=== PATIENT | female | born 1950 | race Caucasian/White ===

== ENCOUNTER → 2019-07-15 | Outpatient (CLI) | payer OTHER | LOC: HYPER 07-11 15:06 | DX: I89.0 Lymphedema, not elsewhere classified (principal); L30.9 Dermatitis, unspecified; E66.01 Morbid (severe) obesity due to excess calories; E78.5 Hyperlipidemia, unspecified; R60.0 Localized edema; R53.82 Chronic fatigue, unspecified; Z68.34 Body mass index [BMI] 34.0-34.9, adult; Z90.710 Acquired absence of both cervix and uterus ==

== ENCOUNTER → 2019-07-23 | Outpatient (CLI) | payer OTHER | LOC: SJCVCIMAG 08:34 | DX: M79.89 Other specified soft tissue disorders (principal); M79.661 Pain in right lower leg; M79.662 Pain in left lower leg ==

== ENCOUNTER → 2019-07-30 | Outpatient (CLI) | payer OTHER | LOC: HYPER 14:01 | DX: L30.9 Dermatitis, unspecified (principal); I89.0 Lymphedema, not elsewhere classified; R53.82 Chronic fatigue, unspecified; E78.5 Hyperlipidemia, unspecified; E66.01 Morbid (severe) obesity due to excess calories; Z68.34 Body mass index [BMI] 34.0-34.9, adult ==

== ENCOUNTER → 2019-08-20 | Outpatient (CLI) | payer OTHER | LOC: HYPER 14:46 | DX: I89.0 Lymphedema, not elsewhere classified (principal); L30.9 Dermatitis, unspecified; R53.82 Chronic fatigue, unspecified; E78.5 Hyperlipidemia, unspecified; E66.01 Morbid (severe) obesity due to excess calories; Z68.34 Body mass index [BMI] 34.0-34.9, adult ==

== ENCOUNTER → 2019-09-10 | Outpatient (CLI) | payer OTHER | LOC: HYPER 08:22 | DX: I89.0 Lymphedema, not elsewhere classified (principal); E78.5 Hyperlipidemia, unspecified; E66.01 Morbid (severe) obesity due to excess calories; L30.9 Dermatitis, unspecified; R60.0 Localized edema; R53.82 Chronic fatigue, unspecified; Z68.34 Body mass index [BMI] 34.0-34.9, adult ==

== ENCOUNTER → 2020-12-23 | Outpatient (CLI) | payer OTHER | LOC: HYPER 08:39 | PROVIDERS: ATTEND Emergency Medicine | DX: I89.0 Lymphedema, not elsewhere classified (principal); L30.9 Dermatitis, unspecified; R60.0 Localized edema; E78.5 Hyperlipidemia, unspecified; E66.01 Morbid (severe) obesity due to excess calories; R53.82 Chronic fatigue, unspecified; Z68.34 Body mass index [BMI] 34.0-34.9, adult ==

== ENCOUNTER → 2021-01-20 | Outpatient (CLI) | payer OTHER | LOC: HYPER 08:22 | PROVIDERS: ATTEND Emergency Medicine | DX: I89.0 Lymphedema, not elsewhere classified (principal); L84 Corns and callosities; L30.9 Dermatitis, unspecified; R60.0 Localized edema; E78.5 Hyperlipidemia, unspecified; E66.01 Morbid (severe) obesity due to excess calories; R53.82 Chronic fatigue, unspecified; Z68.34 Body mass index [BMI] 34.0-34.9, adult ==

== ENCOUNTER → 2021-05-03 | Outpatient (CLI) | payer OTHER | LOC: HYPER 08:14 | PROVIDERS: ATTEND Emergency Medicine | DX: I89.0 Lymphedema, not elsewhere classified (principal); S81.802D Unspecified open wound, left lower leg, subsequent encounter; S81.801D Unspecified open wound, right lower leg, subsequent encounter; L03.115 Cellulitis of right lower limb; L03.116 Cellulitis of left lower limb; L30.9 Dermatitis, unspecified; R60.0 Localized edema; R53.82 Chronic fatigue, unspecified; E78.5 Hyperlipidemia, unspecified; E66.01 Morbid (severe) obesity due to excess calories; Z68.34 Body mass index [BMI] 34.0-34.9, adult; Z79.899 Other long term (current) drug therapy; X58.XXXD Exposure to other specified factors, subsequent encounter ==

== ENCOUNTER 2021-05-17 16:32 | Emergency (ER) | payer OTHER ==
[~2021-05-17] VITALS: Ht 157.5 cm; Wt 86.2 kg
[2021-05-17 18:25] LABS: ABSOLUTE NEUTROPHILS 4.4 thou/uL (1.4-8.2); BASOPHILS 0.9 % (0.0-2.0); EOSINOPHILS 2.8 % (0.0-3.0); HEMATOCRIT 39.2 % (37.0-47.0); HEMOGLOBIN 12.6 gm/dL (12.0-15.0); LYMPHOCYTES 25.3 % (24.0-44.0); MCH 28.2 pg (26.0-34.0); MCHC 32.1 g/dL (28.0-37.0); MCV 87.7 fL (80.0-100.0); MONOCYTES 10.6 % (1.0-8.0); PLATELET COUNT 212 thou/uL (150-400); POLYS 60.4 % (36.0-66.0); RBC 4.47 mil/uL (4.20-5.00); RDW 14.7 % (10.5-14.5); WBC 7.2 thou/uL (4.0-11.0)
[2021-05-17 18:33] LABS: CALCIUM 9.8 mg/dL (8.5-10.1); CREATININE 1.2 mg/dL (0.6-1.0); POTASSIUM 3.9 mmol/L (3.5-5.1)
[2021-05-17] MEDS ORDERED: FUROSEMIDE 40 M40 M1 PO (18:40)
[2021-05-17] MEDS ORDERED: POTASSIUM CHLO10 ME1 PO (18:41)
[2021-05-17] MEDS ORDERED: NAPROSYN500 MG PO (18:54)
[2021-05-17] MEDS ORDERED: AUGMENTIN 875-1 EACH PO (18:54)
[2021-05-17] MEDS ORDERED: NORCO5 PO (18:54)
[2021-05-17 19:20] VITALS: BP 149/77
== END 2021-05-17 19:22 | disposition home or self-care (01) ==
LOC: ER 16:32
PROVIDERS: Emergency Medicine
DX: I89.0 Lymphedema, not elsewhere classified (principal); Z79.899 Other long term (current) drug therapy

== ENCOUNTER → 2021-05-20 | Outpatient (CLI) | payer OTHER ==
[~2021-05-20] MED LIST: AUGMENTIN 875-1 EACH PO; FUROSEMIDE 40 M40 M1 PO; NAPROSYN500 MG PO; NORCO5 PO; POTASSIUM CHLO10 ME1 PO
== END ==
LOC: HYPER 12:51
PROVIDERS: ATTEND Emergency Medicine
DX: L97.822 Non-pressure chronic ulcer of other part of left lower leg with fat layer exposed (principal); I89.0 Lymphedema, not elsewhere classified; L30.9 Dermatitis, unspecified; R60.0 Localized edema; R53.82 Chronic fatigue, unspecified; E78.5 Hyperlipidemia, unspecified; E66.01 Morbid (severe) obesity due to excess calories; Z68.34 Body mass index [BMI] 34.0-34.9, adult; Z79.899 Other long term (current) drug therapy

== ENCOUNTER 2021-05-28 16:39 | Inpatient (IN) | payer OTHER ==
[~2021-05-28] VITALS: Ht 162.6 cm; Wt 101.6 kg
[2021-05-28 16:44] VITALS: BP 159/77
[2021-05-28 18:30] LABS: BASOPHILS 0.4 % (0.0-2.0); EOSINOPHILS 3.3 % (0.0-3.0); HEMATOCRIT 36.8 % (37.0-47.0); LYMPHOCYTES 17.9 % (24.0-44.0); MCH 28.2 pg (26.0-34.0); MCHC 32.7 g/dL (28.0-37.0); MCV 86.4 fL (80.0-100.0); MONOCYTES 8.1 % (1.0-8.0); PLATELET COUNT 209 thou/uL (150-400); POLYS 70.3 % (36.0-66.0); RBC 4.26 mil/uL (4.20-5.00); RDW 14.6 % (10.5-14.5)
[2021-05-28 18:39] LABS: CALCIUM 9.4 mg/dL (8.5-10.1); CREATININE 0.9 mg/dL (0.6-1.0); POTASSIUM 3.9 mmol/L (3.5-5.1)
[2021-05-28 18:45] LABS: ALBUMIN 2.8 g/dL (3.4-5.0); TOTAL BILIRUBIN 0.5 mg/dL (0.2-1.0)
[2021-05-28 20:25] VITALS: BP 173/84
[2021-05-28 22:09] VITALS: BP 157/97
--- NOTE | 2021-05-29 02:39 | NUR ---
PT ADMITTED TO UNIT APPROX 2118, PT ORIENTED TO ROOM, ADDITIONAL CONSENTS OBTAINED, BELONGINGS LOGGED, ADMISSION PACKET PROVIDED, WOUND PICTURES OBTAINED. UPON ADMISSION ASSESSMENT, PT AOX4. PT REPORTS 10/10 PAIN IN LLE. PT RECEIVING PRN IV MORPHINE Q4HR WITH PRN PO NORCO Q4HR AND PRN PO APAP Q4HR AVAILABLE. PT DENIES SOB WHILE ON ROOM AIR. PT TOLERATING PO INTAKE OF FLUIDS AND REGULAR DIET WITHOUT ISSUE. PT WITHOUT NAUSEA OR EMESIS. PT RESTING IN BED THROUGHOUT SHIFT, FREQUENT REPOSITIONING ENCOURAGED, PT NOTED TO SHIFT SLIGHTLY ON HER OWN, OTHERWISE REFUSING REPOSITIONING ASSISTANCE. SENSATION INTACT, CAPILLARY REFILL LESS THAN 3SEC, PEDAL PULSES WEAK, RADIAL PULSES PALPABLE. NONPITTING EDEMA NOTED TO BLE. OPEN WEEPING EDEMA NOTED TO LLE. OPEN AREAS DRESSED WITH XEROFORM, ABD, AND ROLLED GAUZE. PT TOLERATED WOUND CARE WITHOUT ISSUE. PT ENCOURAGED TO NOTIFY STAFF FOR ALL NEEDS, CALL LIGHT WITHIN REACH, BED ALARM ON, BED LOCKED IN LOWEST POSITION, FREQUENT MONITORING WILL CONTINUE.
[2021-05-29 05:56] LABS: HEMATOCRIT 32.1 % (37.0-47.0); HEMOGLOBIN 10.4 gm/dL (12.0-15.0); MCHC 32.5 g/dL (28.0-37.0); MCV 86.3 fL (80.0-100.0); RBC 3.72 mil/uL (4.20-5.00); RDW 14.8 % (10.5-14.5); WBC 7.4 thou/uL (4.0-11.0)
[2021-05-29 06:02] VITALS: BP 148/96
[2021-05-29 06:07] LABS: CALCIUM 8.5 mg/dL (8.5-10.1); CREATININE 0.8 mg/dL (0.6-1.0); POTASSIUM 3.7 mmol/L (3.5-5.1)
[2021-05-29 07:50] VITALS: BP 157/80
--- NOTE | 2021-05-29 09:30 | NUR ---
GOES BY "SWEET PEA". LEFT LOWER LEG OPEN, WEEPING, CELLULITIS. WOUND CARE BID. RIGHT WRIST PIV WITH NS INFUSING @ 100 MLS/HR. ONE ASSIST WITH WALKER. TOLERATING IV ABT WELL. NO ADVERSE EFFECTS NOTED.
[2021-05-29 16:11] VITALS: BP 156/81
[2021-05-29 21:05] VITALS: BP 144/61
--- NOTE | 2021-05-30 00:25 | NUR ---
ASSUMED PT CARE AT 0000.PT WAS OBSERVED LYING DOWN ON HER BED WITH HER EYES CLOSED.L HIP DRSG C/D/I.PT ON 2L/NC.PT BREATHING NORMAL AND NON LABORED.CALL LIGHT WITHIN REACH.
--- NOTE | 2021-05-30 00:43 | NUR ---
ASSUMED PT CARE AT 0000.PT WAS OBSERVED LYING ON HER BED WITH HER EYES COSED.DRSG TO HER L LEG C/D/I.NO COMPLIANT NOTED SO FAR.CALL LIGHT WITHIN REACH.
--- NOTE | 2021-05-30 04:57 | HC ---
[facility] [place] [address] CONSULTATION Name: CINDY CLAROS Room #: 439-P ADM IN M.R.#: [id number] Admission: 05/28/21 Attend Phys: Myesha Heck Discharge: Date of : 52 Report #: [id number] THIS REPORT FOR: cc: Alva Gore DNP, Mary E. DNP Barry, Joseph W. MD ~ DATE OF SERVICE: 05/29/2021 INFECTIOUS DISEASE CONSULTATION ATTENDING PHYSICIAN: Dr. Heck. REASON FOR EVALUATION: Left lower extremity skin and soft tissue infection with cellulitis, likely multifactorial etiology to the inflammatory eruption. HISTORY OF PRESENT ILLNESS: Chart reviewed. The patient examined. A 71-year-old with a longstanding history of venous stasis insufficiency, degree of lymphedema as well, who has chronic wounds. She ____ the duration, although has been followed up in the wound care center. She notes they were increasingly painful, associated with increasing redness and swelling as well. She was referred for admission, had been treated as an outpatient with doxycycline over the last couple of weeks and then more recently Augmentin. Per the report, may have had a positive blood culture with MRSA. She has had followup cultures collected in the ER, which are sterile thus far. Coronavirus testing was negative. Lactic acid was 1.1. On questioning, she is not clear that she has had fevers, has had some degree of diminished appetite and p.o. intake. Denies pulmonary or GI related complaints. ALLERGIES: None known. CURRENT MEDICATIONS: Include enoxaparin, furosemide, vancomycin, Zosyn, hydrocodone as needed. PAST MEDICAL HISTORY: As described above, chronic lower extremity venous stasis insufficiency, complicated by ulcers, has lymphedema, previous bilateral knee arthroplasty. SOCIAL HISTORY: Nonsmoker, no ethanol, no illicit drug use. FAMILY HISTORY: Noncontributory. REVIEW OF SYSTEMS: Otherwise, unremarkable. PHYSICAL EXAMINATION: GENERAL: She is alert, cooperative, appropriate, generally lucid, moderate distress. [facility] [address] [place] [address] CONSULTATION Name: CINDY CLAROS Room #: 439-[facility] IN M.R.#: [id number] Admission: 05/28/21 Attend Phys: Myesha Heck Discharge: Date of : 52 Report #: [id number] VITAL SIGNS: Temperature 98.2, pulse 96, respirations 18, blood pressure 148/96. SKIN: Warm, dry, no rashes. HEENT: Otherwise, unremarkable. Normocephalic. Extraocular muscles intact. NECK: Supple. LUNGS: Diminished breath sounds, scattered crackles at the bases. HEART: Regular, may have a soft systolic murmur. ABDOMEN: Obese, somewhat firm, nontender. EXTREMITIES: No cyanosis. The wrapping over the bilateral lower extremities, there is a considerable swelling noted. It is palpably tender. GENITOURINARY AND RECTAL: Deferred. LABORATORY DATA: Blood cultures collected from the are sterile thus far. Electrolytes: Sodium 141, potassium 3.7, chloride 108, bicarbonate 27, anion gap of 6, BUN and creatinine 19 and 0.8, glucose of 92. CBC: White count of 7.4, H and H 10.4 and 32.1, platelets of 183. Liver function tests otherwise unremarkable. Albumin of 2.8, total protein 7.0. ASSESSMENT AND PLAN: Bilateral lower extremity inflammatory rash ____ left greater than right. There is a component of skin and soft tissue infection I suspect with cellulitis, some underlying venous stasis and lymphedema. We will continue empiric therapy as prescribed. I will need to get more details of her history. Continue wound care as dictated, elevation and compression if she is able. At this point, she is not overtly toxic. We will continue to monitor expectantly. Add incentive spirometry. Continue supportive care. <ELECTRONICALLY SIGNED> By: Rd Koehler MD 05/30/[id number] Koehler MD /nt
[2021-05-30 08:05] VITALS: BP 147/61
--- NOTE | 2021-05-30 12:17 | NUR ---
ASSUMED CARE OF PT AT 0700 THIS MORNING. PT IS A/OX4, AND C/O PAIN IN LT/L/L. PT HAS REDNESS AND SWELLING IN BILAT LOWER LEGS WITH LT LOWER LEG RE-DRESSED WITH XEROFORM, ABD PADS AND KERLEX. ASSESSMENTS NOTED IN CHART AND OTHERWISE UNREMARKABLE. CALL LIGHT AND OTHER NEEDS ARE WITHIN REACH. FALL PRECAUTIONS ARE IN PLACE. MEDS AND TX GIVEN NEEDED AND SCHEDULED. WILL MONITOR AND NOTE ANY CHANGES.
--- NOTE | 2021-05-30 15:22 | HC ---
[facility] [place] [address] CONSULTATION Name: CINDY CLAROS Room #: 439-P ADM IN M.R.#: [id number] Admission: 05/28/21 Attend Phys: Myesha Heck Discharge: Date of : 52 Report #: [id number] THIS REPORT FOR: cc: Alva Gore DNP, Mary E. DNP Jetmore, Allen B. MD ~ DATE OF SERVICE: 05/29/2021 WOUND CARE CONSULTATION NOTE REASON FOR CONSULTATION: Painful cellulitis of left leg in the setting of chronic lymphedema. HISTORY OF PRESENT ILLNESS: The patient is a 71-year-old nondiabetic woman, patient of Dr. Tomer Lawrence, has chronic lymphedema. She has had trouble with cellulitis in her legs before. For about the past 6 months, she has had some redness in her left leg. This became far worse with increased redness, tenderness, burning, and drainage. There was a report in the chart, the patient had positive blood culture showing MRSA. The patient was admitted for IV antibiotics. She primarily complains of severe pain of the left leg, tender to touch. PAST MEDICAL HISTORY: The patient is nondiabetic, chronic lymphedema. ALLERGIES: No known drug allergies. LABORATORY DATA: White blood count 10,000, hemoglobin 12.0, hematocrit 36.8. Albumin 2.8. CURRENT MEDICATIONS: Include intravenous vancomycin and piperacillin. PHYSICAL EXAMINATION: GENERAL: Shows a mildly obese 71-year-old woman who has pain if her left leg is touched. HEENT: Mucous membranes are moist. NECK: Supple. LUNGS: Respirations unlabored. ABDOMEN: Obese. EXTREMITIES: Both legs show lymphedema. There is some chronic stasis changes of her right leg with lymphedema and chronic inflammation of the skin, but no cellulitis. Right leg is nontender. Dressings are removed from the left leg. This shows chronic lymphedema with increased swelling of the left leg and redness with weeping of the skin and acutely tender to touch. Xeroform dressings are left intact and dressings are reinforced with ABD pads, double layer and double layer Kerlix. [facility] [address] [place] [address] CONSULTATION Name: CINDY CLAROS Room #: 439-[facility] IN M.R.#: [id number] Admission: 05/28/21 Attend Phys: Myesha Heck Discharge: Date of : 52 Report #: [id number] IMPRESSION: 1. Chronic lymphedema, both legs. 2. Obesity. 3. Moderate protein-calorie malnutrition, albumin 2.8. 4. Report of methicillin-resistant Staphylococcus aureus bacteremia. 5. Cellulitis of left leg, severe with considerable pain in the setting of chronic lymphedema. PLAN: Xeroform dressings, elevation, IV antibiotics. Compression stocking of the right leg. She cannot tolerate compression of her left leg due to painful cellulitis. Wound care team will follow. <ELECTRONICALLY SIGNED> By: Francisco Mckeon MD 05/30/21 1522 [id number] Francisco Mckeon MD /nt
[2021-05-30 16:10] VITALS: BP 128/60
[2021-05-30 19:23] VITALS: BP 153/70
--- NOTE | 2021-05-31 03:44 | NUR ---
ASSUMED CARE OF PT AT 1900. BEDSIDE REPORT RECIEVED. ZUHAIR ASSESSMENT COMPLETE. PT C/O PAIN IN LLE. WOUND DRESSING CDI, TUBIGRIP TO RLE. MEDS GIVEN PER MAR. IV ANTIBIOTICS INFUSED PER MAR. HIGH FALL PRECAUTIONS IN [place], HOURLY ROUNDING CONTINUING, CALL LIGHT IN REACH
[2021-05-31 04:35] VITALS: BP 139/58
[2021-05-31 08:24] VITALS: BP 124/67
--- NOTE | 2021-05-31 09:00 | NUR ---
71 y/o female, bilateral lower extremity cellulitis and chronic lymphedema who presents to the ED from home on recommendation from her wound care provider Dr. Lawrence. Patient states that she called Dr. Lawrence today because her wound was getting "worse. " Reports increase pain, burning, redness, and drainage. Been on PO ABX. Per report from ED staff, the patient had a positive blood culture that showed MRSA and patient was sent here for IV antibiotic. PCP:Alva Gore DNP Chart review. Cm visited with cyrus at bedside, she is a & o x 4, pleasant and able to make her needs know. Lives at home with her maría. no stairs to enter the home. Has basement stair but she does not have to go down to the basement. Has her rollator her with her. She been up without assist in room with walker. Manage own medication. Not driving in years. [facility], will need to resume [place]. Cyrus voiced she is ready to go home and feeling better per cyrus. She is on IV ABX. Will cont. to assist if needs arise.
--- NOTE | 2021-05-31 14:11 | NUR ---
RD consult. Admit with bilateral lower extremity cellulitis/MRSA and requires IV abx. Eating well, wts increased with lymphedema. On regular diet. Low nutrition risk at this time
[2021-05-31 16:36] VITALS: BP 129/59
--- NOTE | 2021-05-31 18:24 | NUR ---
PT a & o X4. PT VS STABLE. PT IS ROOM AIR. PT WOUND DRESSING CHANGED THIS SHIFT AND ALSO CHANGED BY WOUND MD AND TEAM. PT RECEIVED MEDICATIONS ORDERED AND ALSO RECEIVED PRN MEDICATIONS REQUESTED BY PT. PT IS SBA WITH WALKER. PT IS ABLE TO MAKE NEEDS KNOWN
[2021-05-31 19:28] VITALS: BP 127/66
--- NOTE | 2021-06-01 01:58 | NUR ---
ASSUMED PT CARE AT 1900.PT DENIED PAIN SO FAR.PT UP WITH SBA/WAKER TO THE TOILET.SMALL BM THIS HS.DRSG TO HER L UMANZOR C/D/I.PT CONT ON HER IV ABX ORDERED.PT ABLE TO MAKE HER NEEDS KNOWN.PT SLEEPING ON HER BED BREATHING NORMAL AND UNLABORED.CALL LIGHT WITHIN REACH.
[2021-06-01 08:44] VITALS: BP 153/75
--- NOTE | 2021-06-01 11:38 | NUR ---
Discussed during los with the attending physician, waiting for C & [facility] to determine ABX for home PO or Possible IV ABX. She would like to have [facility] [place].
[2021-06-01 16:29] VITALS: BP 146/60; BP 157/90
--- NOTE | 2021-06-01 17:05 | NUR ---
RE-ASSUMED CARE OF PT AT 0700 THIS MORNING. PT HAS NO COMPLAINTS AND HAS NO CHANGE SINCE LAST CARE. ASSESSMENTS NOTED IN CHART OTHERWISE UNREMARKABLE. WOUND TEAM REPLACED DRESSING ON RT LOWER EXTREMETY. PT IS SB ASST WITH WALKER. CALL LIGHT AND OTHER NEEDS ARE IN REACH. MEDS AND TX GIVEN NEEDED AND SCHEDULED. WILL MONITOR AND NOTE ANY CHANGE IN CONDITION. PT HAS FINISHED WITH IV ABx AND WILL START PO MEDS TONIGHT AT 2100HRS.
[2021-06-01 19:50] VITALS: BP 126/61
--- NOTE | 2021-06-02 02:52 | NUR ---
ASSUMED PT CARE AT 1900.PT'S SPOUSE AT BEDSIDE AT SHIFT CHANGE.PT UP WITH SBA/WALKER TO THE TOILET.DRSG TO HER LLE C/D/I.PT PROGRESSING WELL TOWARDS DC GOALS.FREQUENT ROUNDING MAINTAINED.CALL LIGHT WITHIN REACH.
[2021-06-02 05:18] VITALS: BP 151/67
[2021-06-02 06:23] LABS: CALCIUM 8.6 mg/dL (8.5-10.1); CREATININE 0.9 mg/dL (0.6-1.0); POTASSIUM 3.3 mmol/L (3.5-5.1)
[2021-06-02] MEDS ORDERED: CIPROFLOXACIN500 M1 PO (09:23)
[2021-06-02] MEDS ORDERED: AMOX TR-K CLV1 EAC4 PO (09:23)
[2021-06-02] MEDS ORDERED: SSD CREAM 1% 5050 GM TOP (09:24)
[2021-06-02 10:54] VITALS: BP 151/67
--- NOTE | 2021-06-02 13:03 | NUR ---
RE-ASSUMED CARE OF PT AT 0700 THIS MORNING. PT IS EXCITED TO BE LEAVING THIS MORNING. NO CHANGE IN ASSESSMENTS AND OTHERWISE UNREMARKABLE. CHANGED DRESSING USING MED, XEROFORM, ABD PADS AND KERLEX. CALL LIGHT AND OTHER NEEDS ARE IN REACH. MEDS AND TX GIVEN NEEDED AND SCHEDULED. WILL MONITOR PT AND NOTE ANY CHANGES. PT WAS DISCHARGED WITH EDUCATION AND DISCHARGE PAPERWORK THAT WAS SIGNED BY PT. PT WENT TO MAIN ENTRANCE IN BY [employer]ER [employer]ICE CHIEF TO POV.
[2021-06-02 13:09] VITALS: BP 151/67
--- NOTE | 2021-06-02 13:10 | NUR ---
Pt dcing home today with orders for wound care and po atb. Pt to f/u with the wound clinic. [facility] called back and indicates they can not accept the referral due to being out of network with pt's ins plan. Referral faxed to [facility] and [facility]. [facility] can accept for wound care and therapy however they can not doing any lympodema therapy and would refer pt to our outpt therapy dept once she is no longer home bound. They will f/u with the wound clinic. All parties updated. Pt agreeable and has needed dme inplace.
[2021-06-02 16:25] VITALS: BP 151/67
== END 2021-06-02 14:09 | disposition home health service (06) | DRG 603 ==
LOC: ER 16:39 → EROBS 20:05 → 4S 20:05
PROVIDERS: Nurse Practitioner Family; Specialist; ADMIT Hospitalist; ATTEND Hospitalist
DX: L03.116 Cellulitis of left lower limb (principal); E44.0 Moderate protein-calorie malnutrition; L97.229 Non-pressure chronic ulcer of left calf with unspecified severity; L03.115 Cellulitis of right lower limb; E66.9 Obesity, unspecified; I89.0 Lymphedema, not elsewhere classified; Z79.899 Other long term (current) drug therapy; Z96.653 Presence of artificial knee joint, bilateral; B95.62 Methicillin resistant Staphylococcus aureus infection as the cause of diseases classified elsewhere; R53.81 Other malaise; R23.8 Other skin changes; Z68.38 Body mass index [BMI] 38.0-38.9, adult; Z20.822 Contact with and (suspected) exposure to COVID-19
CPT/HCPCS: 10195

== ENCOUNTER → 2021-06-15 | Outpatient (CLI) | payer OTHER ==
[~2021-06-15] MED LIST changes: +AMOX TR-K CLV1 EAC4 PO; +CIPROFLOXACIN500 M1 PO; +SSD CREAM 1% 5050 GM TOP
== END ==
LOC: HYPER 14:10
PROVIDERS: ATTEND Emergency Medicine
DX: I87.332 Chronic venous hypertension (idiopathic) with ulcer and inflammation of left lower extremity (principal); L97.822 Non-pressure chronic ulcer of other part of left lower leg with fat layer exposed; L84 Corns and callosities; I89.0 Lymphedema, not elsewhere classified; L30.9 Dermatitis, unspecified; R60.0 Localized edema; R53.82 Chronic fatigue, unspecified; E78.5 Hyperlipidemia, unspecified; E66.01 Morbid (severe) obesity due to excess calories; Z68.34 Body mass index [BMI] 34.0-34.9, adult

== ENCOUNTER → 2021-06-22 | Outpatient (CLI) | payer OTHER | LOC: HYPER 08:34 | PROVIDERS: ATTEND Emergency Medicine | DX: I87.332 Chronic venous hypertension (idiopathic) with ulcer and inflammation of left lower extremity (principal); L97.822 Non-pressure chronic ulcer of other part of left lower leg with fat layer exposed; I89.0 Lymphedema, not elsewhere classified; L30.9 Dermatitis, unspecified; R60.0 Localized edema; R53.82 Chronic fatigue, unspecified; E78.5 Hyperlipidemia, unspecified; E66.01 Morbid (severe) obesity due to excess calories; Z68.34 Body mass index [BMI] 34.0-34.9, adult; Z79.899 Other long term (current) drug therapy ==

== ENCOUNTER → 2021-07-13 | Outpatient (CLI) | payer OTHER | LOC: HYPER 10:32 | PROVIDERS: ATTEND Emergency Medicine | DX: I87.332 Chronic venous hypertension (idiopathic) with ulcer and inflammation of left lower extremity (principal); L97.822 Non-pressure chronic ulcer of other part of left lower leg with fat layer exposed; I89.0 Lymphedema, not elsewhere classified; L30.9 Dermatitis, unspecified; R60.0 Localized edema; R53.82 Chronic fatigue, unspecified; E78.5 Hyperlipidemia, unspecified; E66.01 Morbid (severe) obesity due to excess calories; Z79.899 Other long term (current) drug therapy ==

== ENCOUNTER → 2021-08-03 | Outpatient (CLI) | payer OTHER | LOC: HYPER 14:43 | PROVIDERS: ATTEND Emergency Medicine | DX: I87.332 Chronic venous hypertension (idiopathic) with ulcer and inflammation of left lower extremity (principal); L97.822 Non-pressure chronic ulcer of other part of left lower leg with fat layer exposed; L84 Corns and callosities; L30.9 Dermatitis, unspecified; I89.0 Lymphedema, not elsewhere classified; R60.0 Localized edema; R53.82 Chronic fatigue, unspecified; E78.5 Hyperlipidemia, unspecified; E66.01 Morbid (severe) obesity due to excess calories; Z68.34 Body mass index [BMI] 34.0-34.9, adult ==

== ENCOUNTER → 2021-08-24 | Outpatient (CLI) | payer OTHER | LOC: HYPER 08:00 | PROVIDERS: ATTEND Emergency Medicine | DX: I87.332 Chronic venous hypertension (idiopathic) with ulcer and inflammation of left lower extremity (principal); L97.822 Non-pressure chronic ulcer of other part of left lower leg with fat layer exposed; L84 Corns and callosities; L30.9 Dermatitis, unspecified; I89.0 Lymphedema, not elsewhere classified; R60.0 Localized edema; R53.82 Chronic fatigue, unspecified; E78.5 Hyperlipidemia, unspecified; E66.01 Morbid (severe) obesity due to excess calories; Z68.34 Body mass index [BMI] 34.0-34.9, adult ==